=== PATIENT | female | born 1965 | race Caucasian/White ===

== ENCOUNTER 2023-03-21 22:13 | Observation (INO) | payer OTHER, SELFPAY ==
[2023-03-21 16:27] VITALS: BP 133/91
[2023-03-21 16:37] VITALS: BP 131/80
[2023-03-21 17:00] VITALS: BP 122/85
[2023-03-21 17:12] LABS: % Basophils 0.9 % (0-2); % Eosinophils 3.2 % (0-6); % Immature Granulocytes 0.2 % (0-0.5); % Lymphocytes 34.6 % (20.5-51.1); % Monocytes 12.5 % (1.7-9.3); % Neutrophils 48.6 % (42.2-75.2); Absolute Eosinophils 0.2 10^3/uL (0-0.7); Absolute Lymphocytes 1.6 10^3/uL (1.2-3.4); Absolute Monocytes 0.6 10^3/uL (0.1-0.6); Absolute Neutrophils 2.3 10^3/uL (1.4-6.5); Hematocrit 35.6 % (37.0-47.0); Hemoglobin 12.6 g/dL (12.0-16.0); Mean Corp Hgb Conc. 35.4 g/dL (33.0-37.0); Mean Corpuscular Hgb 33.6 pg (27.0-31.0); Mean Corpuscular Volume 94.9 fL (81.0-99.0); Mean Platelet Volume 8.8 fL (7.4-10.4); Nucleated Red Blood Cells % 0 %; Platelet Count 341 10^3/uL (130-400); Red Blood Cell Count 3.75 10^6/uL (4.20-5.40); White Blood Cell Count 4.7 10^3/uL (4.8-10.8)
[2023-03-21 17:26] LABS: ALT (SGPT) 34 U/L (0-35); AST (SGOT) 34 U/L (14-36); Albumin 3.6 g/dl (3.5-5.0); Alkaline Phosphatase 54 U/L (38-126); Blood Urea Nitrogen 10 mg/dl (7-17); Calcium 9.2 mg/dl (8.4-10.2); Carbon Dioxide 29 mmol/L (22-30); Chloride 101 mmol/L (98-107); Glucose 100 mg/dl (70-99); Potassium 4.1 mmol/L (3.5-5.1); Sodium 135 mmol/L (135-145); Total Bilirubin 0.9 mg/dl (0.2-1.3); eGFR > 60.00
--- NOTE | 2023-03-21 19:26 | ED.GENMED ---
History of Present Illness
General
Chief Complaint: Weakness
Source: patient
Exam Limitations: none
Time Seen by Provider: 03/21/23 16:40
Nursing documentation reviewed up to this point in time: agreed with
Travel History
Have you had any contact with someone who has COVID-19?: No
Do you have any symptoms of coronavirus? Fever > 100 degrees, chills, cough, shortness of breath, sore throat, loss of taste or smell, muscle aches, or headache?: No
History of Present Illness
History of Present Illness:
Patient's status post tib-fib repair 3 days ago, presents to ED secondary to sudden onset of right facial droop noted while brushing her teeth this morning at 8:30 AM. Denies headache. Denies difficulty with speech or swallowing. Denies loss of
sensation or weakness. Denies dizziness. Denies blurred vision. Denies difficulty with ambulation. Patient is currently taking aspirin 325 mg daily prophylactically since surgery. Of note, patient has had history of Gill-Osiel syndrome
secondary to Bactrim, from which she has intermittent residual numb/swelling sensation in her lips. In addition, patient had multiple episodes of shortness of breath during ambulation this morning.
Past History
Past History
ED Past Medical History: COPD and Hypothyroidism
ED Past Surgical History: Orthopedic
Social History
Tobacco: Former smoker
Alcohol: Occasional
Personal:
Living: with family
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
Review of Systems
Review of Systems
Allergies reviewed?: Yes
All Other Systems: ROS reviewed and negative except as documented in HPI and ROS
Constitutional: Reports no symptoms
EENT: Reports no symptoms
Respiratory: Reports trouble breathing
Cardiac: Reports no symptoms
ABD/GI: Reports no symptoms
: Reports no symptoms
Musculoskeletal: Reports no symptoms
Skin: Reports no symptoms
Neurological: Reports other (facial droop)
Phy Exam
Physical Exam
Physical Exam:
Physical Exam
General: no apparent distress, not acutely ill. afebrile
Head: nc/at. eomi
Neck: supple. no meningeal signs.
Heart: s1/s2 regular rate and rhythm, no murmur. equal radial pulses.
Lungs: no acute respiratory distress. clear bilaterally
Abdomen: normal bowel sounds. not tender.
Neuro: alert and oriented. no focal sensory/motor deficit. normal speech. right facial droop noted.
Skin: no rash
Psychiatric: well kept. interactive and cooperative
Extremities: LLE in cast.
Course
Orders/Labs/Results
Orders:
Orders
03/21/23 16:56
Electrocardiogram (*1) Urgent
Reason for Study: TIA/Stroke
CT Head W/o Iv Contrast Urgent
Comment:
Reason For Exam: right facial droop
Cardiac Monitoring- Treatment ONCE
EKG- Treatment ONCE
03/21/23 16:57
CR Chest - 2 Views Urgent
Comment:
Reason For Exam: sob, post tib/fib repair
03/21/23 17:02
Complete Blood Count/With Diff Urgent
Comprehensive Metabolic Panel Urgent
03/21/23 19:25
D-Dimer Urgent
03/21/23 21:07
Clopidogrel Bisulfate [Plavix] 300 mg PO NOW STA
03/21/23 21:40
Admit/Transfer Patient As Directed
Co-Sign Provider:
Level of Care: Observation services
Assign to:: Telemetry
Physician / Group: Saad
Diagnosis: Facial droop
Reason for Telemetry: CVA/TIA
Date to Stop Telemetry: 03/24/23
Time to Stop Telemetry: 11:00
03/21/23 21:53
Acetaminophen [Tylenol] 1,000 mg PO NOW STA
03/24/23 11:00
DC Protocol for Telemetry ONCE
Abnormal Lab Results
03/21/23 03/21/23
17:02 19:25
WBC 4.7 L 10^3/uL
(4.8-10.8)
RBC 3.75 L 10^6/uL
(4.20-5.40)
Hct 35.6 L %
(37.0-47.0)
MCH 33.6 H pg
(27.0-31.0)
Monocytes % 12.5 H %
(1.7-9.3)
D-Dimer 0.63 H ug/mlFEU
(0.00-0.50)
Creatinine 0.4 L mg/dL
(0.6-1.0)
Glucose 100 H mg/dl
(70-99)
Total Protein 6.0 L g/dl
(6.3-8.2)
03/21/23 17:02
03/21/23 17:02
Vital Signs
Initial and Last Documented VS:
Initial Vital Signs
Temp Pulse Resp BP Pulse Ox
98.0 F 72 18 133/91 96
03/21/23 16:27 03/21/23 16:27 03/21/23 16:27 03/21/23 16:27 03/21/23 16:27
Last Documented Vital Signs
Temp Pulse Resp BP Pulse Ox
98.0 F 67 14 111/69 99
03/21/23 16:27 03/21/23 17:45 03/21/23 17:45 03/21/23 19:28 03/21/23 19:28
MDM/Problems Addressed
MDM/Problems Addressed:
ASA 325mg already taken at home today.
Discussed with (neurology) - recommends admission for further workup, and starting asa/plavix, along with MRI brain only tomorrow without MRA.
Exertional SOB likely secondary to atelectasis with decreased activity, less likely PE at this time.
*Critical Care Note
Total Time (30-74mins, 75-104mins- exclusive of procedures): Not Applicable
ED Attending Note
-
Portions of this chart may have been created with voice recognition software.� Occasional wrong word or��sound alike� substitutions may have occurred due to the inherent limitations of voice recognition software.
Discharge Plan
Departure
Patient Disposition: Admit
Date of Disposition: 03/21/23
Time of Disposition: 21:10
Presentation/result/management discussed w/ accepting MD/DO: Hospitalist
Discharge Problem:
Facial droop
Interventions
Interventions:
*Risk Screen - Suicide Last Done: 03/21/23 17:07
*General Assessment Last Done: 03/21/23 16:32
*Neglect/Abuse Screening Last Done: 03/21/23 17:07
ED- Fall Risk Assessment Last Done: 03/21/23 22:38
*ED COVID-19 Vaccine History Last Done: 03/21/23 16:27
*Nursing Disposition Last Done: 03/21/23 22:38
ED- Cardiac Assessment Last Done: 03/21/23 17:07
ED- Neurological Assessment Last Done: 03/21/23 17:08
ED- Pulmonary Assessment Last Done: 03/21/23 17:07
Discharge Date and Time
Discharge Date/Time: 03/21/23 22:40
[2023-03-21 19:28] VITALS: BP 111/69
--- NOTE | 2023-03-21 19:30 | EDRN ---
Report received, introduced myself to patient, patient aware of plan for another lab test
[2023-03-21 20:34] LABS: D-Dimer 0.63 ug/mlFEU (0.00-0.50)
[2023-03-21] MEDS: PLAVIX 300 MG PO (21:16)
--- NOTE | 2023-03-21 21:38 | HPS.HSE ---
Family Physician
-
Family Physician: Génesis Michelle
Medical History
Past Medical History
Past Medical History: Reports Other
Past Surgical History: Reports Other
Social History
Unable to obtain full social history at this time due to: Other
Family History
Family History: Other
Allergies / Home Medications
Allergies reflects when Allergies were last updated in [facility].
Home Medications with original date entered in [facility]
Review of Systems
-
A 12 point ROS was completed and negative except as noted: Yes
Physical Exam
Vital Signs
Vital Signs
Temp Pulse Resp BP Pulse Ox
98.0 F 67 14 111/69 99
03/21/23 16:27 03/21/23 17:45 03/21/23 17:45 03/21/23 19:28 03/21/23 19:28
Laboratory Results
-
03/21/23 17:02
03/21/23 17:02
Laboratory Results
Total Bilirubin 0.9 mg/dl (0.2-1.3) 03/21/23 17:02
AST 34 U/L (14-36) 03/21/23 17:02
ALT 34 U/L (0-35) 03/21/23 17:02
Alkaline Phosphatase 54 U/L (38-126) 03/21/23 17:[address]: No acute intracranial abnormality.
Chest x-ray: No acute abnormality
EKG: Normal sinus rhythm, rate around 64, ID [id number], QT she 392, otherwise normal EKG.
Data Reviewed
-
CT Scan: Image Personally Visualized and interpreted and Discussed with Patient
Lab Data: Labs Reviewed by me and Discussed with Patient
Impression/Plan
-
IMPRESSION:
PLAN:
[2023-03-21] MEDS: TYLENOL 1000 MG PO (21:56)
--- NOTE | 2023-03-21 22:15 | EDRN ---
Hospitalist at bedside working on admission
--- NOTE | 2023-03-21 22:40 | HPS.HSE ---
Family Physician
-
Family Physician: Génesis Michelle
Chief Complaint
-
Right-sided facial droop
History of Present Illness
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
coffee, by the time she made it down she felt short of breath and she has to take a break, eventually went back To [place] Her Teeth When She Looked in the Mirror She Saw Her Right Side Facial Droop Mostly at the Corner of the Right Ankle with Droopy
Which Is Still Denied Any Dizziness or Numbness or Any Weakness or Numbness in Extremities No Palpitation No Any Loss of Consciousness or Any Vision Change, No Ataxic Gait or Speech Disturbance or Confusion, No Urinary or GI Symptom, She Has Been
Eating Drinking Well.
She Admits She Has been under a lot of stress over the last 3 years now-fractured left leg at the latter situation.
Workup in the ER basically showed no acute abnormalities other than the right-sided facial droop all the tests are so far negative look like neurology contacted by the ER they recommended aspirin and Plavix while she is taking 325 aspirin for DVT
prophylaxis for left leg fracture as well as takes 400 mg Motrin with 1000 mg Tylenol 3 times a day for pain control and she has oxycodone and Ultram rarely she takes pills.
She is awake, alert and oriented x 3 hold appropriate conversation, D-dimers were minimally elevated while maintaining her normal sat and heart rate,
Medical History
Past Medical History
Past Medical History: Reports Other
Additional Past Medical History:
Past medical history reviewed:
Hypothyroidism
Recent fracture of the left leg status post ORIF
Asmanex
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
Family history: Reviewed and noncontributory
Past Surgical History: Reports Other
Social History
Unable to obtain full social history at this time due to: Other
Family History
Family History: Other
Allergies / Home Medications
Allergies reflects when Allergies were last updated in [facility].
Home Medications with original date entered in [facility]
Allergy/Medication List:
Allergies
Allergy/AdvReac Type Severity Reaction Status Date / Time
latex Allergy Itching Verified 03/21/23 16:32
sulfamethoxazole Allergy Gill Verified 03/21/23 16:32
[From Bactrim] Osiel
Sydrome
trimethoprim [From Bactrim] Allergy Gill Verified 03/21/23 16:32
Osiel
Sydrome
Home Medications
albuterol sulfate 90 mcg/actuation aerosol inhaler 2 puff inhalation R Q6HPRN PRN sob 12/28/19
calcium carbonate 600 mg-vitamin D3 20 mcg (800 unit) chewable tablet (Caltrate 600 plus D) 2 tab PO DAILY 12/28/19
levothyroxine 100 mcg tablet 100 mcg PO SUSA 12/28/19
levothyroxine 50 mcg tablet 50 mcg PO MOTUWETHFR 12/28/19
progesterone micronized 200 mg capsule 200 mg PO HS 12/28/19
L.acidoph, paracasei,B. lactis 10 billion cell capsule 1 ea PO DAILY 12/29/19
methylcellulose (laxative) 500 mg tablet (Citrucel) 2,000 mg PO DAILY 12/29/19
acetaminophen 500 mg capsule 1,000 mg PO TID 03/12/23
magnesium gluconate 500 mg tablet 500 mg PO HS 03/12/23
ondansetron HCl 4 mg tablet 4 mg PO Q6HPRN PRN n/v 03/12/23
aspirin 325 mg tablet 325 mg PO DAILY 03/21/23
ibuprofen 400 mg tablet 400 mg PO TID 03/21/23
tramadol 50 mg tablet 50 mg PO Q6HPRN PRN severe pain 03/21/23
Review of Systems
-
A 12 point ROS was completed and negative except as noted: Yes
Physical Exam
Vital Signs
Vital Signs
Temp Pulse Resp BP Pulse Ox
98.0 F 67 14 111/69 99
03/21/23 16:27 03/21/23 17:45 03/21/23 17:45 03/21/23 19:28 03/21/23 19:28
Physical exam:
General: Awake, alert and oriented x3, not in distress and holds appropriate conversation.
HEENT: Mild right side angle of mouth droop when she clenches her teeth, l no active discharge, ecchymosis or bruising, moist lips, tongue and mucous membrane.
Eyes: No discharge or red conjunctiva, no nystagmus, pupils are reactive and equal
Neck:Supple, no JVD no bruit no goiter.
Respiratory: Normal AP contour and diameter, normal chest wall movement, normal respiratory effort, no respiratory distress,
Lungs: Good air entry bilaterally, no wheezing or rhonchi, no rales or crackles
Heart: S1, S2 regular, normal rate, no added sound.
Gastrointestinal: Positive bowel sounds, soft, nontender, no guarding or rigidity or organomegaly
Musculoskeletal: , no chest wall abnormality or tenderness. All joints and extremities have good range of motion, no muscle tenderness or any joint swelling or tenderness.
Extremities: No pitting edema, good peripheral pulses, good range of motion
Skin: Warm and dry, no ulceration, normal color.
Neurological: Awake, alert and oriented x3, cranial nerve II-XII grossly intact except mild right angle of mouth droop when she clench her teeth, extension and intention intact, cerebellar sign intact, extraocular muscle intact,, speech clear and
comprehensive, good muscle tone, normal sensory and motor function
Psychiatric: Normal mood, normal thought and judgment, normal affect,
Physical Exam
General: Other
Laboratory Results
-
03/21/23 17:02
03/21/23 17:02
Laboratory Results
Total Bilirubin 0.9 mg/dl (0.2-1.3) 03/21/23 17:02
AST 34 U/L (14-36) 03/21/23 17:02
ALT 34 U/L (0-35) 03/21/23 17:02
Alkaline Phosphatase 54 U/L (38-126) 03/21/23 17:02
CT brain: Showed no acute abnormality
Chest x-ray: No acute cardiopulmonary normality
EKG showed normal sinus rhythm rate around 64, UT 142, QTc 392 otherwise no acute abnormality
Data Reviewed
-
Diagnostic Radiology: Image Personally Visualized and interpreted, Discussed with Nurse and Discussed with Patient
Medical Tests (Nuc Med, Echo, EKG etc): Image Personally Visualized and interpreted and Discussed with Nurse
Lab Data: Labs Reviewed by me and Discussed with Patient
Old Records: Reviewed
Impression/Plan
-
IMPRESSION:
57-year-old female presented to the hospital after she noticed right-sided angle of mouth droop only when she clench, and she was short of breath earlier 1 she came down with a step as she had a recent ORIF left ankle, otherwise no chest pain or any
other complaint. Admit large amount of the stress and anxiety for the last 3 years and is much worse since she broke care leg.
Right angle of the mouth droop, stroke or TIA to be considered be very unlikely and the possibility Urbano's pulses likely not seen on exam, spasms at the possibility that she admits this could be related to her stress.
Anxiety
Minimal elevation of D-dimer which is likely secondary to her right more than PE
Recent right leg fracture status post ORIF
Ambulatory dysfunction because of the fracture
PLAN:
Cardiac monitoring
Will do an MRI and MRA head and neck per neurology's recommendation
If they are negative and still symptomatic then Urbano's palsy could be a possibility but unlikely on the exam,
Stress could be another possibility
Checks lipid panel, A1c
And that she takes aspirin 325 daily as a prophylactic for the recent leg surgery I will add Plavix with close monitoring of the blood pressure, also she takes Motrin 400 mg 3 times a day for the pain in the leg, risks of taking all these NSAIDs and
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
I will add a PPI and advised her to take the medication as she does with the food and adding PPI for now while taking these NSAID schedule.
Will hold off CT chest that she is can convince she does not have a pulmonary embolism if D-dimer is minimally related, and she does not know when to go through with for now unless condition is change having more signs and symptoms of pulmonary
embolism heart rate and saturation is normal on room air.
Regarding MRI again ordered but she thinks she may not able to lay still because of the pain offered some pain medication before the procedure with anxiolytic but she says she will think about it to decide which route is she should go up she thinks
she cannot able to lay flat during the procedure because of the leg pain other alternative would be a dose of Toradol with some Xanax.
Patient will let us know before the MRI.
Statin 40 mg started as discussed with the patient so continuation pending the finding.
All discussed with the patient in detail and expressed understanding
CODE STATUS full code
DVT prophylaxis Lovenox
[2023-03-21 23:00] VITALS: BP 138/79
--- NOTE | 2023-03-21 23:00 | SUR.OPER ---
Upon arrival to floor able to ambulate w/crutches/NWB LLE from castaneda to bed. Steady on feet. No lightheadedness or dyspnea. Rt facial droop noted; no other deficits noted.
[2023-03-21 23:35] VITALS: BMI 20.5
[2023-03-21 23:48] LABS: Troponin I < 0.012 ng/ml
[2023-03-22] MEDS: PLAVIX PO
[2023-03-22] MEDS: MOTRIN 400 MG PO ×2 (00:47→07:04)
[2023-03-22 02:32] VITALS: BP 126/79
[2023-03-22 03:21] VITALS: BP 126/79
[2023-03-22] MEDS: TYLENOL 1000 MG PO (07:05)
[2023-03-22 07:43] LABS: Troponin I < 0.012 ng/ml
[2023-03-22 07:47] LABS: HDL Cholesterol 42 mg/dl; LDL Cholesterol, Calculated 102 mg/dl; Total Cholesterol 167 mg/dl (50-199); Triglyceride 116 mg/dl (10-149); Very Low Density Lipoprotein 23 mg/dl (0-30)
[2023-03-22 08:00] VITALS: BP 149/85
--- NOTE | 2023-03-22 08:10 | CON.NEURO4 ---
Addendum entered and electronically signed by Ugo Royal MD 03/22/23 11:03:
I saw and evaluated the patient I reviewed the note by Carey Gordon agree the findings with the following comments:
57-year-old woman with a recent fall on ice and repair of left tibia and fibula fracture with ORIF on 03/17 presents to hospital with right facial weakness noted yesterday morning after awakening.
Patient did not have any drooling or speech change has not had any hearing change including any tinnitus or hearing loss and no headaches. No recent viral illnesses no complaint of unilateral paresthesia or weakness of the limbs or gait change.
Had a history of migraine with aura as a child but these resolved many years ago. She is been taking aspirin 325 mg since the orthopedic surgery, no history of stroke or heart attack.
Neurologic examination shows symmetric face at rest. She has Botox injections of the eyes and forehead so limited examination and forehead raising appears symmetric and eyelid closure is strong and symmetric, symmetric blink bilaterally.
With smiling the patient does show a mild amount of right facial weakness but the droop is mainly downward and diagonal. Otherwise motor or sensory reflexes and coordination are all normal.
CT head noncontrast unremarkable
Assessment: Will need ruling out ischemic stroke of the left hemisphere. Not typical for Urbano's palsy given she has symmetric blinking as well as strong eyelid closure. 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
weakness given great stressors recently with poor sleep recent surgery in agreement stress since Osiel syndrome 3 years ago.
Recommendations
-Agree with checking MRI and MRA of the head without contrast and MRI of the neck with contrast
-Keep current antiplatelet therapy
-If MRI of the brain is negative would be reasonable to place on a 5-day course of 50 mg prednisone and then stop without taper
-Neurologic checks NIH stroke scales and goal normal blood pressure in the meantime
Original Note:
Documented by User: Carey Amaro NP 03/22/23 10:47
Consultation - Neurology 4
-
CONSULTING PHYSICIAN: Craig Royal MD
REFERRING PHYSICIAN: Hospitalists/Dr. Saad
DICTATED BY: CINTHIA Peña
DATE/TIME OF REQUEST: 03/21/23
DATE/TIME OF CONSULTATION: 03/22/23
Reason for Consultation: Right facial droop
History of Present Illness:
This is a 57-year-old right-handed female who has presented to the hospital with report of acute onset right facial droop. Patient reports slipping on ice and falling on 03/10/23 and subsequently underwent left tibia and fibula ORIF on 03/17/23. She
reports that she tolerated surgery well and was recovering at home without any initial issues. Yesterday (03/21/23), she went downstairs at home for the first time since surgery and reports significant shortness of breath in addition to feeling
light-headed from scooting down the stairs on her bottom. After she regained her breath she went into the bathroom to brush her teeth and upon looking in the mirror noticed that the right side of her face was drooping. On arrival to the ER, CT head
was obtained and is negative for any acute intracranial abnormalities. ER VS: 98.0, HR 72, BP 133/91, RR 18, 96% RA. ER Labs: D-Dimer 0.63, Cr 0.4. She is taking a full dose aspirin 325mg post-op but was not taking any blood thinning medications
prior to her recent surgery. She was not a candidate for TNK/IAT due to NIHSS <6 and unclear diagnosis. She was loaded with Plavix 300mg in the ER.
Patient reports that the evening before she noticed her right facial droop (03/20/23), she did notice that her words sounded and felt 'thick' to her, but her family did not notice any abnormality. 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 When she is stressed the neuropathy is more prominent, but she has never felt like her words felt 'thick' before. She denies any headache, neck/back pain,
vision changes, swallowing difficulty, drooling, hearing/taste/smell changes, nausea, weakness, chest pain, and palpitations. She gets cosmetic botox in her forehead and denies any eyelid drooping or double vision. She has not been up walking in the
hospital but denies any shortness of breath or chest discomfort at rest. She endorses significant life stressors over the past 3 years and over the past two weeks she has only been sleeping about two hours per night. For her LLE pain she is taking
Motrin and Tylenol. She denies any head or neck trauma with her fall. She denies any history of TIA, stroke, recent fever/viral illness, or events like this in the past.
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
irritable bowel syndrome, anorexia in her 20's, joint hypermobility
Surgical History: Left tibia/fibula ORIF (03/17/23), right shoulder surgery x2, right knee arthroscopy, cosmetic botox-forehead
Family History: Paternal grandfather- CVA in his 80's. Maternal aunt- Lupus
Social History: Former tobacco. Denies alcohol and illicit drug use.
Allergies: Latex, sulfamethoxazole, trimethoprim.
Home Medications: See below.
Review of Symptoms:
Patient denies any fever, headache, chest pain, shortness of breath, GI or symptoms.
�Per the HPI.�All systems are reviewed negative except above.
Physical Exam:
The patient is afebrile, abdomen is nondistended, breathing is unlabored, skin is warm and dry, LLE hard cast in place.
NIH Stroke Scale:
I performed the NIH stroke scale on the patient on 03/22/23 at 0830. The patient scored 1 points on the NIH stroke scale assessment, which were assigned as follows: See below.
Neurologic Examination:
The patient is awake, alert and oriented x 3. She is able to follow commands and answer questions appropriately. There is no aphasia or dysarthria. On cranial nerve assessment, pupils are 3 mm bilateral, round and reactive to light and
accommodation. Visual chew are full. Extraocular movements are intact. There is no ptosis. Minimal bilateral eyebrow raising due to botox. Facial sensations are intact and bilaterally symmetrical. There is right mouth drooping with movement,
symmetric at rest. Hearing is intact bilaterally to finger rub. Tongue palate and uvula are midline. Sternocleidomastoid strengths are full bilaterally. Motor strengths are 5/5 bilateral upper and lower extremities on medical research [place] scale.
RADHA distal LLE strength as leg is in cast. There is no drift or involuntary movement noted. Deep tendon reflexes are 1+ bilateral upper and right lower extremities (RADHA LLE due to cast) and Babinski is absent bilaterally. Sensations of touch,
temperature and vibration are intact and bilaterally symmetrical. There was no extinction noted on double simultaneous stimulation. Coordination is intact by finger to nose bilaterally.
Lab Results: See below.
Neuro Imaging:
1. CT Head 03/21/23: No acute intracranial abnormality noted.
Differentials for the patient's presentation include:
1. Small stroke possible
2. Right Urbano's palsy possible but less likely given absence of right eye symptoms
3. Functional neurological disorder possibly producing right facial drooping in the setting of stress and poor sleep
4. Right facial droop unlikely related to history of SJS
Patient has the following risk factors for their symptoms: For tobacco, recent surgery
IV Tenecteplase/IAT candidacy: Not a candidate due to NIHSS <6, unclear diagnosis
Recommendations:
-MRI brain noncontrast ordered/pending
-MRA head/neck ordered/pending
-TTE ordered/pending
-Continue aspirin 325mg daily per ortho. Continue Plavix 75mg daily for 21 days only, will reconsider this after MRI imaging is obtained.
-If MRI brain demonstrates a stroke, LDL goal will be <70. LDL is 102. Will hold off on starting statin therapy until MRI results are obtained.
-Goal normoglycemia, hbA1c is 5.4.
-NIHSS and neurological checks per unit guidelines.
-ST evaluations
-Will follow pending results. Patient should follow-up with Neurology as an outpatient, may see the [facility] Connie Gutierrez or one of the physicians.
Discussed patient care with: Dr. Royal, the patient
Vital Signs and Labs
-
Vital Signs and Labs:
Vital Signs
Temp Pulse Resp BP Pulse Ox
97.7 F 74 16 149/85 96
03/22/23 08:00 03/22/23 08:00 03/22/23 08:00 03/22/23 08:00 03/22/23 08:10
Lab Results
03/21/23 17:02
03/21/23 17:02
Sodium 135 mmol/L (135-145) 03/21/23 17:02
Potassium 4.1 mmol/L (3.5-5.1) 03/21/23 17:02
BUN 10 mg/dl (7-17) 03/21/23 17:02
Glucose 100 mg/dl (70-99) H 03/21/23 17:02
Calcium 9.2 mg/dl (8.4-10.2) 03/21/23 17:02
LDL Cholesterol, Calc 102 mg/dl 03/22/23 07:06
Medications
-
Active Medications
Generic Name Dose Route Start Last Admin
Trade Name Freq PRN Reason Stop Dose Admin
Acetaminophen 1,000 mg 03/22/23 08:00 03/22/23 07:05
Acetaminophen 500 Mg Tablet PO 04/19/23 07:59 1,000 mg
TID LEXIE Administration
Acetaminophen 650 mg 03/21/23 22:45
Acetaminophen 650 Mg Rectal Suppository RECTAL 04/18/23 22:44
Q4HPRN PRN
CHOUDHURY, mild pain, or temp >100.4F
Acetaminophen 650 mg 03/21/23 22:45
Acetaminophen 325 Mg Tablet PO 04/18/23 22:44
Q4HPRN PRN
CHOUDHURY, mild pain, or temp >100.4F
Albuterol 2 puff 03/21/23 22:45
Albuterol Hfa [90 Mcg/Dose] Inhaler INH 04/18/23 22:44
R Q6HPRN PRN
sob
Protocol
Aspirin 81 mg 03/23/23 08:00
Aspirin 81 Mg (Enteric Coated) Tablet PO 04/20/23 07:59
DAILY LEXIE
Calcium/Vitamin D 500 mg 03/22/23 08:00 03/22/23 08:29
Calcium Carbonate 500 Mg/Vitamin D 5 Mcg (200 Units) Tablet PO 04/19/23 07:59 500 mg
DAILY LEXIE Administration
Clopidogrel Bisulfate 75 mg 03/21/23 22:45 03/22/23 08:30
Clopidogrel 75 Mg Tablet PO 04/18/23 22:44 75 mg
DAILY LEXIE Administration
Enoxaparin Sodium 40 mg 03/22/23 18:00
Enoxaparin Sodium 40 Mg/0.4 Ml Syringe SC 04/19/23 17:59
QPM LEXIE
Ibuprofen 400 mg 03/22/23 08:00 03/22/23 07:04
Ibuprofen 400 Mg Tablet PO 04/19/23 07:59 400 mg
TID LEXIE Administration
Lactobacillus/Bifidobacterium 1 cap 03/22/23 08:00 03/22/23 08:30
Lactobac/Bifidobac (Visbiome) PO 04/19/23 07:59 1 cap
DAILY LEXIE Administration
Levothyroxine Sodium 100 mcg 03/27/23 07:00
Levothyroxine 100 Mcg Tablet PO 04/24/23 06:59
SuSa@0700 LEXIE
Levothyroxine Sodium 50 mcg 03/22/23 09:00
Levothyroxine 50 Mcg Tablet PO 04/19/23 08:59
MoTuWeThFr@0700 LEXIE
Lorazepam 0.5 mg 03/22/23 09:06
Lorazepam 2 Mg/Ml Vial IV 04/19/23 09:05
ONCE PRN PRN
agitation
Magnesium 84 mg 03/22/23 22:00
Magnesium Lactate 84 Mg Tablet PO 04/19/23 21:59
HS LEXIE
Non-Formulary Medication 200 mg 03/21/23 22:45
Progesterone Micronized PO 04/18/23 22:44
HS LEXIE
Ondansetron HCl 4 mg 03/21/23 23:37
Ondansetron 4 Mg/2 Ml Vial IV 04/18/23 23:36
Q6HPRN PRN
NAUSEA/VOMITING
Psyllium Hydrophilic Mucilloid 1 packet 03/22/23 08:00 03/22/23 08:33
Psyllium Packet PO 04/19/23 07:59 Not Given
DAILY LEXIE
Sodium Chloride 0 flush 03/21/23 23:00
Sodium Chloride 0.9% (Flush) Syringe IV 04/18/23 22:59
PER PROTOCOL LEIXE
Sodium Chloride 0.25 ml 03/22/23 09:09
Nss (Pf) 10 Ml Vial For Ativan 0.5 Mg Dose IV 04/19/23 09:08
ONCE PRN PRN
IV LORAZEPAM DILUTION
Tramadol HCl 50 mg 03/21/23 22:45
Tramadol Hcl 50 Mg Tablet PO 04/18/23 22:44
Q6HPRN PRN
severe pain
Home Medications
Medication Instructions Recorded
albuterol sulfate 90 mcg/actuation 2 puff inhalation R Q6HPRN PRN sob 12/28/19
aerosol inhaler
calcium carbonate 600 mg-vitamin 2 tab PO DAILY Supplement 12/28/19
D3 20 mcg (800 unit) chewable
tablet (Caltrate 600 plus D)
levothyroxine 100 mcg tablet 100 mcg PO SUSA Thyroid 12/28/19
levothyroxine 50 mcg tablet 50 mcg PO MOTUWETHFR Thyroid 12/28/19
progesterone micronized 200 mg 200 mg PO HS Hormonal Agent 12/28/19
capsule
L.acidoph, paracasei,B. lactis 10 1 ea PO DAILY Supplement 12/29/19
billion cell capsule
methylcellulose (laxative) 500 mg 2,000 mg PO DAILY Constipation 12/29/19
tablet (Citrucel)
acetaminophen 500 mg capsule 1,000 mg PO TID Pain 03/12/23
magnesium gluconate 500 mg tablet 500 mg PO HS Supplement 03/12/23
ondansetron HCl 4 mg tablet 4 mg PO Q6HPRN PRN n/v 03/12/23
aspirin 325 mg tablet 325 mg PO DAILY Blood Clot 03/21/23
Prevention/Tx
ibuprofen 400 mg tablet 600 mg PO TID Pain 03/21/23
tramadol 50 mg tablet 50 mg PO Q6HPRN PRN severe pain 03/21/23
NIH Stroke Score
Subsequent NIH Scale
Date of Subsequent NIH Scale: 03/22/23
Time of Subsequent NIH Scale: 08:30
NIH Stroke Score
Level of Consciousness: 0 - Alert
LOC Questions: 0-Answers both correctly
LOC Commands: 0-Performs both correctly
Best Horizontal Gaze: 0-Normal
Visual Chew: 0=Normal, no visual loss
Facial Palsy: 1=Minor paralysis
Motor - Right Arm: 0=No drift 10 seconds
Motor - Left Arm: 0=No drift 10 seconds
Motor - Right Le-No drift 5 seconds
Motor - Left Le-No drift 5 seconds
Limb Ataxia: 0-Absent
Sensation: 0-Normal
Best Language: 0-No aphasia
Dysarthria: 0-Normal
Extinction and Inattention: 0-No abnormality
Total Score:: 1

Documented by User: Ugo Royal MD 03/22/23 11:00
NIH Stroke Score
NIH Stroke Score
Total Score:: 1
[2023-03-22] MEDS: OSCAL 500 + D 500 MG PO (08:29)
[2023-03-22] MEDS: ASPIRIN 325 MG PO (08:29)
[2023-03-22] MEDS: PLAVIX 75 MG PO (08:30)
[2023-03-22] MEDS: VISBIOME 1 CAP PO (08:30)
[2023-03-22 09:54] LABS: Glycohemoglobin (HgbA1c) 5.4 % (4.0-5.6)
[2023-03-22 10:35] VITALS: BP 144/91
[2023-03-22] MEDS: ATIVAN 0.5 MG IV (10:42)
[2023-03-22] MEDS: NSS (PRESERVATIVE FREE) 0.25 ML IV (10:42)
[2023-03-22] MEDS: SYNTHROID 50 MCG PO (10:43)
[2023-03-22 11:00] VITALS: BP 111/88
--- NOTE | 2023-03-22 11:27 | PTOTSP ---
Dysphagia Evaluation
Oral and pharyngeal stages of swallowing suspected to be WFL for consistencies assessed this date. No signs concerning for dysphagia or aspiration observed or reported by patient. No dysphagia tx warranted.
Speech and language WFL at the conversation level without signs of aphasia or dysarthria. Full assessment not completed. Will follow peripherally (for results of MRI of Brain) and test higher level speech/language as appropriate. No needs
anticipated based on results of this session at this time.
Recommend:
1. Regular, Thin Liquids
2. Medications as best tolerated
3. No therapy warranted at this time.
--- NOTE | 2023-03-22 12:59 | W.PN.HOSP.TC ---
Addendum entered and electronically signed by Yobani Bearden MD 03/22/23 16:41:
[id number]
Original Note:
Today's Communication/Plan
-
resume meds
prednisone 50mg daily x 5 days
f/u neurology outpatient
Assessment / Plan
Assessment / Plan
Physical exam:
General: Awake, alert and oriented x3, not in distress and holds appropriate conversation.
HEENT: Mild right side angle of mouth droop when she clenches her teeth, l no active discharge, ecchymosis or bruising, moist lips, tongue and mucous membrane.
Eyes: No discharge or red conjunctiva, no nystagmus, pupils are reactive and equal
Neck:Supple, no JVD no bruit no goiter.
Respiratory: Normal AP contour and diameter, normal chest wall movement, normal respiratory effort, no respiratory distress,
Lungs: Good air entry bilaterally, no wheezing or rhonchi, no rales or crackles
Heart: S1, S2 regular, normal rate, no added sound.
Gastrointestinal: Positive bowel sounds, soft, nontender, no guarding or rigidity or organomegaly
Musculoskeletal: , no chest wall abnormality or tenderness.� All joints and extremities have good range of motion, no muscle tenderness or any joint swelling or tenderness.
Extremities: No pitting edema, good peripheral pulses, good range of motion
Skin: Warm and dry, no ulceration, normal color.�
Neurological: Awake, alert and oriented x3, cranial nerve II-XII grossly intact except mild right angle of mouth droop when she clench her teeth, extension and intention intact, cerebellar sign intact, extraocular muscle intact,, speech clear and
comprehensive, good muscle tone, normal sensory and motor function
Psychiatric: Normal mood, normal thought and judgment, normal affect,
IMPRESSION:
57-year-old female presented to the hospital after she noticed right-sided angle of mouth droop only when she clench, and she was short of breath earlier 1 she came down with a step as she had a recent ORIF left ankle, otherwise no chest pain or any
other complaint.� Admit large amount of the stress and anxiety for the last 3 years and is much worse since she broke care leg.
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
Right angle of the mouth droop, stroke or TIA to be considered be very unlikely and the possibility Urbano's pulses likely not seen on exam
Anxiety
Minimal elevation of D-dimer which is likely secondary to her right more than PE
Recent right leg fracture status post ORIF
Ambulatory dysfunction because of the fracture
PLAN:
Functional neurologic disorder - possibly stress related v bells palsy although less likely
-MRI/MRA negative
-Resume 325mg asa
-f/u neurology outpatient
-PT/OT
-can place on a 5-day course of 50 mg prednisone and then stop without taper
#Shortness of breath
-resolved on its own
-patient has been grossly immobile since surgery
-signs/symptoms reflect deconditioning
-PT/OT
-Incentive trung
-less likely PE at this time; not tachycardic, not hypoxic
#Hypothyroidism
-resume Synthroid
More than 30 minutes spent in discharge including
Final examination of the patient
Summarizing hospital stay
Instructions for continuing care to all relevant caregivers
Preparation of discharge records, prescriptions, and referral forms
Total time spent (35 in minutes):
Anticipated Discharge: Today
Subjective/Interval History
-
Date of Service: March 22, 2023
no acute events; work with pt/ot today
Objective Data
-
Vital Signs:
Vital Signs
Temp Pulse Resp BP Pulse Ox
97.8 F 80 20 111/88 97
03/22/23 11:00 03/22/23 11:00 03/22/23 11:00 03/22/23 11:00 03/22/23 11:00
Review of Systems
-
History Source: Patient
All other systems: Not reviewed unless documented
Data Reviewed
-
Diagnostic Radiology: Image personally visualized and interpreted and Report Reviewed by me
CT Scan: Image personally visualized and interpreted and Report Reviewed by me
MRI: Image personally visualized and interpreted and Report Reviewed by me
Labs: Labs Reviewed by me
--- NOTE | 2023-03-22 13:08 | W.DS.TRANS ---
DC Summary - Belt Brander
-
Discharge Instructions:
Discharge Diagnosis/Procedures Functional neurologic disorder
Diet Low Cholesterol,Low Fat
Blood Work Lipid panel with PCP
Instructions:
Stand-Alone Forms:
Changes to Home Medications: Yes
Discharge Medications:
DC Medications w/original date entered in [employer]
albuterol sulfate 90 mcg/actuation aerosol inhaler 2 puff inhalation R Q6HPRN PRN sob 12/28/19
calcium carbonate 600 mg-vitamin D3 20 mcg (800 unit) chewable tablet (Caltrate 600 plus D) 2 tab PO DAILY Supplement 12/28/19
levothyroxine 100 mcg tablet 100 mcg PO SUSA Thyroid 12/28/19
levothyroxine 50 mcg tablet 50 mcg PO MOTUWETHFR Thyroid 12/28/19
progesterone micronized 200 mg capsule 200 mg PO HS Hormonal Agent 12/28/19
L.acidoph, paracasei,B. lactis 10 billion cell capsule 1 ea PO DAILY Supplement 12/29/19
methylcellulose (laxative) 500 mg tablet (Citrucel) 2,000 mg PO DAILY Constipation 12/29/19
acetaminophen 500 mg capsule 1,000 mg PO TID Pain 03/12/23
magnesium gluconate 500 mg tablet 500 mg PO HS Supplement 03/12/23
ondansetron HCl 4 mg tablet 4 mg PO Q6HPRN PRN n/v 03/12/23
aspirin 325 mg tablet 325 mg PO DAILY Blood Clot Prevention/Tx 03/21/23
tramadol 50 mg tablet 50 mg PO Q6HPRN PRN severe pain 03/21/23
ibuprofen 400 mg tablet 600 mg PO TID PRN Pain #0 tabs 03/22/23
prednisone 50 mg tablet 50 mg PO DAILY 5 days #5 tabs 03/22/23
Home Medication Changes
prednisone 50 mg tablet 50 mg PO DAILY 5 days #5 tabs 03/22/23
Pending Results: No
--- NOTE | 2023-03-22 13:16 | CM ---
security systems manager reviewed patient's chart and met with patient and patient was admitted under observation, observation letter signed by patient. Patient lives with spouse in a 2 story home, patient is independent with adl's and uses crutches with
ambulation, per reports that she has access to a walker after discharge. Patient has a prescription plan and uses [address]
PCP: Dr Michelle
Plan; Home today with spouse no needs.
[2023-03-22 16:37] LABS: TSH Reflex To Free T4 1.69 uIU/ml (0.47-4.68)
== END 2023-03-22 13:59 | disposition home or self-care (01) ==
LOC: 4 WEST ACU 22:13
PROVIDERS: ADMITTING PHYSICIAN Internal Medicine; ATTENDING PHYSICIAN Internal Medicine; EMERGENCY PHYSICIAN Emergency Medicine; FAMILY PHYSICIAN Internal Medicine; OTHER PHYSICIAN Student in an Organized Health Care Education/Training Program
DX: R06.02 Shortness of breath (principal); R29.810 Facial weakness; R53.1 Weakness; J44.9 Chronic obstructive pulmonary disease, unspecified; E03.9 Hypothyroidism, unspecified; Z88.2 Allergy status to sulfonamides; Z88.1 Allergy status to other antibiotic agents; Z91.040 Latex allergy status; Z87.891 Personal history of nicotine dependence; Z79.82 Long term (current) use of aspirin; Z79.890 Hormone replacement therapy
CPT/HCPCS: 70450; 70544; 70548; 70551; 71046; 80053; 80061; 83036; 83735; 84443; 84484; 85025; 85379; 92610; 93005; 93306; 97166; 99285; A9585; G0378

== ENCOUNTER → 2023-07-23 12:01 | Outpatient (REF) | payer OTHER, SELFPAY | LOC: RAD 12:01 | PROVIDERS: ATTENDING PHYSICIAN Registered Nurse | DX: M54.42 Lumbago with sciatica, left side (principal) | CPT/HCPCS: 72110 ==

== ENCOUNTER → 2023-10-28 14:57 | Outpatient (REF) | payer OTHER, SELFPAY | LOC: HWWDC 14:57 | PROVIDERS: ATTENDING PHYSICIAN Nurse Practitioner Adult Health; FAMILY PHYSICIAN Internal Medicine | DX: Z12.31 Encounter for screening mammogram for malignant neoplasm of breast (principal) | CPT/HCPCS: 77063; 77067 ==

== ENCOUNTER → 2023-11-15 13:53 | Outpatient (REF) | payer OTHER, SELFPAY | LOC: MRI 3T 13:53 | PROVIDERS: ATTENDING PHYSICIAN Nurse Practitioner Adult Health; FAMILY PHYSICIAN Internal Medicine | DX: R29.810 Facial weakness (principal) | CPT/HCPCS: 70553; A9575 ==

== ENCOUNTER → 2023-12-22 09:55 | Outpatient (REF) | payer OTHER, SELFPAY | LOC: HWRAD 09:55 | PROVIDERS: ATTENDING PHYSICIAN Internal Medicine; REFERRING PHYSICIAN Obstetrics & Gynecology Gynecology | DX: Z78.0 Asymptomatic menopausal state (principal) | CPT/HCPCS: 77080 ==

== ENCOUNTER → 2024-03-07 15:48 | Outpatient (REF) | payer OTHER, SELFPAY | LOC: HWRCS 15:48 | PROVIDERS: ATTENDING PHYSICIAN Internal Medicine | DX: I27.20 Pulmonary hypertension, unspecified (principal) | CPT/HCPCS: 93306 ==

== ENCOUNTER → 2024-03-17 09:07 | Outpatient (REF) | payer OTHER, SELFPAY ==
[2024-03-17 10:07] LABS: % Basophils 0.9 % (0-2); % Eosinophils 2.9 % (0-6); % Immature Granulocytes 0.4 % (0-0.5); % Monocytes 10.3 % (1.7-9.3); % Neutrophils 51.5 % (42.2-75.2); Absolute Basophils 0.1 10^3/uL (0-0.2); Absolute Eosinophils 0.2 10^3/uL (0-0.7); Absolute Lymphocytes 1.9 10^3/uL (1.2-3.4); Absolute Monocytes 0.6 10^3/uL (0.1-0.6); Absolute Neutrophils 2.9 10^3/uL (1.4-6.5); Hematocrit 39.6 % (37.0-47.0); Hemoglobin 13.4 g/dL (12.0-16.0); Mean Corp Hgb Conc. 33.8 g/dL (33.0-37.0); Mean Corpuscular Hgb 32.9 pg (27.0-31.0); Mean Corpuscular Volume 97.3 fL (81.0-99.0); Mean Platelet Volume 9.3 fL (7.4-10.4); Nucleated Red Blood Cells % 0 %; Platelet Count 245 10^3/uL (130-400); Red Blood Cell Count 4.07 10^6/uL (4.20-5.40); Red Cell Dist. Width 11.9 % (11.5-14.5); White Blood Cell Count 5.6 10^3/uL (4.8-10.8)
[2024-03-17 10:32] LABS: Blood Urea Nitrogen 12 mg/dl (7-17); Calcium 9.7 mg/dl (8.4-10.2); Carbon Dioxide 30 mmol/L (22-30); Chloride 97 mmol/L (98-107); Glucose 89 mg/dl (70-99); Potassium 4.2 mmol/L (3.5-5.1); Sodium 137 mmol/L (135-145); eGFR > 60.00
== END ==
LOC: RCS 09:07
PROVIDERS: ATTENDING PHYSICIAN Student in an Organized Health Care Education/Training Program; FAMILY PHYSICIAN Internal Medicine
DX: Z01.818 Encounter for other preprocedural examination (principal)
CPT/HCPCS: 36415; 80048; 85025; 93005